=== PATIENT | male | born 1975 | race Caucasian/White ===

== ENCOUNTER 2018-01-08 12:30 | Emergency (ER) | payer OTHER ==
[~2018-01-08] VITALS: Ht 172.7 cm; Wt 77.1 kg
== END 2018-01-08 17:37 | disposition home or self-care (01) ==
LOC: ER 12:30
DX: M10.071 Idiopathic gout, right ankle and foot (principal)

== ENCOUNTER 2021-08-13 09:00 | Outpatient (CLI) | payer OTHER | END 2021-08-13 09:15 | disposition home or self-care (01) | LOC: PPH VACUNA 09:00 | PROVIDERS: ATTEND Emergency Medicine Pediatric Emergency Medicine | DX: Z23 Encounter for immunization (principal) ==

== ENCOUNTER 2023-02-09 09:22 | Day surgery (SDC) | payer OTHER | END 2023-02-09 14:35 | disposition home or self-care (01) | LOC: AMB-ENDOS 09:22 | PROVIDERS: ATTEND Colon & Rectal Surgery | DX: D12.4 Benign neoplasm of descending colon (principal); K57.30 Diverticulosis of large intestine without perforation or abscess without bleeding; Z20.822 Contact with and (suspected) exposure to COVID-19; K64.8 Other hemorrhoids ==

== ENCOUNTER 2023-03-06 11:00 | Emergency (ER) | payer OTHER ==
[~2023-03-06] VITALS: Ht 170.2 cm; Wt 88.5 kg
== END 2023-03-06 15:39 | disposition home or self-care (01) ==
LOC: ER 11:00
DX: M76.892 Other specified enthesopathies of left lower limb, excluding foot (principal)